=== PATIENT | male | born 1955 | race Caucasian/White ===

== ENCOUNTER 2016-08-05 03:29 | Emergency (ER) | payer SELFPAY ==
[2016-08-05] MEDS ORDERED: Ondansetron HCl/PF 4 MG/2 ML Vial ONE (04:03)
[2016-08-05] MEDS ORDERED: Morphine Sulfate 2 MG/ML SYRINGE ONE (04:03)
--- NOTE | 2016-08-05 06:35 | ERRECORD ---
[facility] EMERGENCY RECORD ADMIN (03:37 [facility]) MERGE: Ambulance Tue Aug 05, 2016 03:25. HPI FALL (03:55 [facility]IM) CHIEF COMPLAINT: Patient presents for evaluation of fall, from standing, landing on back. HISTORIAN: History provided by patient, History provided by patient's spouse, 60 y/o male with EtOH abuse, s/p fall six days ago requiring L shoulder surgery 5 days ago, presenting after fall yesterday. Pt does not described exactly what happened. states that she was giving pt 2 tabs of tramadol every 4-6 hours, so he was altered. Pt indicates that he might have fallen with his back against concrete stairs. Less likely that he fell down the stairs. No headache. Mild neck muscle soreness. Significant L mid back pain. LOCATION: Symptoms are localized, most severe to L mid back. QUALITY: Pain is dull in nature, described as aching. TIME COURSE: Sudden onset of symptoms, 1, days ago, There has been no change in the patient's symptoms over time. ASSOCIATED WITH: Associated with neck pain, No associated chest pain, Associated with abdominal pain, Associated with back pain, No associated elbow pain, No associated wrist pain, No associated hand pain, No associated finger pain, No associated hip pain, No associated knee pain, No associated ankle pain, No associated foot pain, No associated alcohol use, No associated blurred vision, No associated inability to bear weight, No associated headache, No associated loss of consciousness, No associated near syncope. EXACERBATED BY: Patient's condition exacerbated by extension, Patient's condition exacerbated by flexion. RELIEVED BY: Patient's condition relieved by nothing. ROS (03:59 ALIM) CONSTITUTIONAL: Negative constitutional review of systems, Historian denies fever, denies weakness. EYES: Negative eye review of systems, Historian denies eye pain, denies vision changes. ENT: Negative ears, nose, throat review of systems, Historian denies rhinorrhea, denies sore throat. CARDIOVASCULAR: Negative cardiovascular review of systems, Historian denies chest pain, no radiation, Historian denies syncope. RESPIRATORY: Negative respiratory review of systems, Historian denies cough, denies shortness of breath, denies wheezing. GI: Historian reports abdominal pain, denies constipation, denies diarrhea, denies nausea, denies vomiting. GENITOURINARY MALE: Historian denies dysuria. MUSCULOSKELETAL: Historian reports back pain, denies deformity, reports fall, reports injury, reports neck pain. SKIN: Negative skin review of systems, Historian denies rash, &a-1R&a+25V*p+0X*[id number]*c202B*c15G*c2P*p-0X&a-25V&a+1R Name: Levi Young : 1955 M60 MedRec: [id number] AcctNum: [id number] Prepared: jaguar Aug 05, 2016 21:34 by Interface Page 1 of 4 pMD [facility] EMERGENCY RECORD denies skin changes, denies skin lesions. NEUROLOGIC: Historian denies dizziness, denies headache. was taking too much tramadol per . PSYCHIATRIC: Historian reports alcohol abuse, denies drug abuse. NOTES: All systems reviewed, negative except as described above. PAST MEDICAL HISTORY MEDICAL HISTORY: Flu vaccine up to date, Pneumococcal vaccine up to date, Past medical history includes history of hypertension, which has been treated. (03:43 [facility]) MALE SURGICAL HISTORY: BILATERAL CATARACTS; R HAND SX (STAPH INFECTION), Surgical history of orthopedic surgery, LEFT SHOULDER, Date of surgery 07/31/2016. (03:43 [facility]) SOCIAL HISTORY: Patient drinks every day, more than 10 drinks per day, Alcohol history notes: PT HAS NOT DRANK SINCE THURSDAY (07/31/16), Patient is a former drug user, abused marijuana, Patient currently uses tobacco, smokes cigarettes, daily, Patient smokes 1.5 packs per day, Lives at home, with family. (03:43 [facility]) NOTES: Nursing records reviewed, Agree with nursing records, Medication list reviewed, I have reviewed and agree with nursing PMH, PSH, social history, and . (04:04 [facility]) KNOWN ALLERGIES NKDA (Unconfirmed) No Known Allergies (Unconfirmed) No Known Drug Allergies CURRENT MEDICATIONS LORazepam: TABLET : Strength - 1 mg : ORAL Patient Dose: 1 mg Oral As Needed.Last Taken: 08/05/16 @ 02:30. TID. (04:26 [facility]) [place]: TABLET : Strength - 5 mg-325 mg : ORAL Patient Dose: 1-2 tab(s) Oral As Needed.Last Taken: 1 TAB-08/05/16@ 02:30. EVERY 6 HRS. (04:27 [facility]) folic acid: TABLET : Strength - 1 mg : ORAL Patient Dose: 1 mg Oral once a day. (04:27 [facility]) amLODIPine: TABLET : Strength - 5 mg : ORAL Patient Dose: 5 mg Oral once a day. (04:28 [facility]) traMADol: TABLET : Strength - 50 mg : ORAL Patient Dose: 1-2 tab(s) Oral As Needed.EVERY 4-6 HOURS. (04:29 [facility]) Vitamin B-1: &a-1R&a+25V*p+0X*u1129P*c202B*c15G*c2P*p-0X&a-25V&a+1R Name: Levi Young : 1955 M60 MedRec: [id number] AcctNum: [id number] Prepared: Lauryn Aug 05, 2016 21:34 by Interface Page 2 of 4 pMD [facility] EMERGENCY RECORD TABLET : Strength - 100 mg : ORAL Patient Dose: 100 mg Oral once a day. (04:29 [facility]) VITAL SIGNS VITAL SIGNS: BP: 179/84, Pulse: 89, Resp: 20, Pain: 10 (Constant), O2 sat: 100 on Room Air, Time: 08/05/2016 03:31. (03:31 [facility]) Temp: 98.0 (Oral), Time: 08/05/2016 03:31. (03:31 [facility]) BP: 150/74, Resp: 18, O2 sat: 100 on Room Air, Time: 08/05/2016 05:00. (05:00 [facility]) BP: 125/75, Pulse: 86, Resp: 16, O2 sat: 96 on Room Air, Time: 08/05/2016 05:54. (05:54 [facility]) BP: 129/78, Pulse: 87, Resp: 16, Temp: 97.8 (Oral), Pain: 10, O2 sat: 98 on Room Air, Time: 08/05/2016 06:25. (06:25 [facility]) PHYSICAL EXAM (04:00 [facility]) CONSTITUTIONAL: Vital signs reviewed, Patient afebrile, Pulse normal, Blood pressure, hypertensive, Respiratory rate normal, Patient appears non toxic, Patient appears in pain, in moderate pain distress, Patient alert and oriented to person, place and time, slightly drowsy. HEAD: Head exam normal, Head exam included findings of head atraumatic, normocephalic. EYES: Eye exam normal, Eye exam included findings of eyelids normal to inspection, Extraocular muscles intact. ENT: ENT exam normal, Ear exam normal, Nose exam normal. NECK: Neck exam normal, Neck exam included findings of normal range of motion, Trachea midline. RESPIRATORY CHEST: Respiratory and chest exam normal, Respiratory exam included findings of no respiratory distress, no egophony, Breath sounds clear, No wheezing. CARDIOVASCULAR: Cardiovascular assessment normal, Cardiovascular exam included findings of heart rate regular rate and rhythm. ABDOMEN MALE: Abdominal exam normal, Abdominal exam included findings of abdomen nontender, Bowel sounds normal. BACK: Tenderness, paraspinal to the left mid back. UPPER EXTREMITY: L shoulder in sling. No pain. LOWER EXTREMITY: Lower extremity exam normal, Left pelvis exam normal, Right pelvis exam normal, Left hip exam normal, Right hip exam normal. NEURO: Neuro exam normal, Neuro exam findings include patient oriented to person, place and time, [place] coma scale 15. SKIN: Skin exam normal, Skin exam included findings of skin warm, dry, and normal in color. PSYCHIATRIC: Psychiatric exam normal, Psychiatric exam included findings of patient oriented to person place and time, Normal affect. MEDICATION ADMINISTRATION SUMMARY &a-1R&a+25V*p+0X*p0904B*c202B*c15G*c2P*p-0X&a-25V&a+1R Name: Levi Young Blanca : 1955 M60 MedRec: [id number] AcctNum: [id number] Prepared: ThuAug 05, 2016 21:34 by Interface Page 3 of 4 pMD [facility] EMERGENCY RECORD Drug Name: morphine injection, Dose Ordered: 2 mg, Route: IV Push, Status: Given, Time: 04:05 08/05/2016, Drug Name: Zofran intravenous, Dose Ordered: 4 mg, Route: IV Push, Status: Given, Time: 04:05 08/05/2016, Detailed record available in Medication Service section. DOCTOR NOTES RE-EVALUATION: CT head and c/spine negative. Removed c-collar. Awaiting CT chest and a/p. Pain controlled with morphine 2 mg given earlier. (04:59 ALI) CT chest shows L posterior 9th and 10th rib fractures, minimally or nondisplaced. CT a/p wnl. (06:13 [facility]) PROBLEM LIST No recorded problems DIAGNOSIS (06:12 [facility]) FINAL: PRIMARY: Fall from standing, ADDITIONAL: Closed minimally displaced rib fractures, Left 9th and 10th posterior rib fractures. PRESCRIPTION No recorded prescriptions DISPOSITION PATIENT: Disposition Type: Discharge, Disposition: *Discharge Home. (06:10 [facility]) Patient left the department. (06:31 [facility]) Lane: SUPRIYA=MD Manan, Yair [facility]=ANNE-MARIE Ashton, [place] &a-1R&a+25V*p+0X*[id number]*c202B*c15G*c2P*p-0X&a-25V&a+1R Name: Levi Young : 1955 M60 MedRec: [id number] AcctNum: [id number] Prepared: Lauryn Aug 05, 2016 21:34 by Interface Page 4 of 4 pMD MTDD
--- NOTE | 2016-08-05 06:41 | PICIS ---
[facility] EMERGENCY RECORD ADMIN MERGE: Ambulance ThuAug 05, 2016 03:25. (03:37 [facility]) TRIAGE (ThuAug 05, 2016 03:36 [facility]) PATIENT: NAME: Levi Young, AGE: 60, GENDER: male, : Thu1955, TIME OF GREET: ThuAug 05, 2016 03:30, PREFERRED LANGUAGE: Bahraini, ETHNICITY: Not or , ECODE BILLING MAP: [facility], SSN: [id number], Zip Code: [address], KG WEIGHT: 69.4 (est.), PHONE: , , , PERSON ID: [id number], PCP: NONE. (ThuAug 05, 2016 03:36 [facility]) TRIAGE NOTES: FALL LAST NIGHT AROUND 20:30. C/O LOW BACK PAIN. PT STATES HE WAS STANDING AT BACK DOOR AND LEGS GAVE OUT. FELL BACKWARDS AND BACK HIT CONCRETE STEPS. (ThuAug 05, 2016 03:36 [facility]) COMPLAINT: FALL. (ThuAug 05, 2016 03:36 [facility]) ADMISSION: URGENCY: 4 Non Urgent, ADMISSION SOURCE: Home, TRANSPORT: AMBULANCE - [facility], BED: TRIAGE. (ThuAug 05, 2016 03:36 [facility]) ASSESSMENT: Symptoms began 08/04/2016 20:30, Location: LEFT/MID BACK. (03:43 [facility]) PAIN: Patient complains of pain described as, aching, cramping, sharp, shooting, stabbing, unbearable, on a scale 0-10 patient rates pain as 10, Location MID/LOWER BACK TO LEFT SIDE, Pain is constant. (03:43 [facility]) IMMUNIZATIONS: Flu vaccine up to date, Date of immunization: 07/31/2016, Tetanus immunization up to date, Pneumococcal vaccine up to date. (03:43 [facility]) SIRS SCORING: Heart Rate 55-109 (0), Temp range 96.8-101.1 (0), respiratory rate 12-24 (0), Mental Status altered: no (0). (03:43 [facility]) TRIAGE SCREENING: Patient denies suicidal ideation, Patient denies presence of domestic violence. (03:43 [facility]) TREATMENTS IN PROGRESS: Treatments given Prehospital: NORCO 5-325MG & 1MG LORAZEPAM@ 02:30. (03:43 [facility]) PROVIDERS: TRIAGE NURSE: Enedina Ashton RN. (ThuAug 05, 2016 03:36 [facility]) VITAL SIGNS: BP 179/84, Pulse 89, Resp 20, Pain 10, (Constant), O2 Sat 100, on Room Air, Time 08/05/2016 03:31. (03:31 [facility]) PREVIOUS VISIT ALLERGIES: NKDA. (ThuAug 05, 2016 03:36 [facility]) NKDA. (03:43 [facility]) KNOWN ALLERGIES NKDA (Unconfirmed) No Known Allergies (Unconfirmed) No Known Drug Allergies CURRENT MEDICATIONS LORazepam: &a-1R&a+25V*p+0X*h0283O*c202B*c15G*c2P*p-0X&a-25V&a+1R Name: KristenLevi daniels Blanca : 1955 M60 MedRec: [id number] AcctNum: [id number] Prepared: ThuAug 05, 2016 21:40 by Interface Page 1 of 15 pMD [facility] EMERGENCY RECORD TABLET : Strength - 1 mg : ORAL Patient Dose: 1 mg Oral As Needed.Last Taken: 08/05/16 @ 02:30. TID. (04:26 [facility]) [place]: TABLET : Strength - 5 mg-325 mg : ORAL Patient Dose: 1-2 tab(s) Oral As Needed.Last Taken: 1 TAB-08/05/16@ 02:30. EVERY 6 HRS. (04:27 [facility]) folic acid: TABLET : Strength - 1 mg : ORAL Patient Dose: 1 mg Oral once a day. (04:27 [facility]) amLODIPine: TABLET : Strength - 5 mg : ORAL Patient Dose: 5 mg Oral once a day. (04:28 [facility]) traMADol: TABLET : Strength - 50 mg : ORAL Patient Dose: 1-2 tab(s) Oral As Needed.EVERY 4-6 HOURS. (04:29 [facility]) Vitamin B-1: TABLET : Strength - 100 mg : ORAL Patient Dose: 100 mg Oral once a day. (04:29 [facility]) VITAL SIGNS VITAL SIGNS: BP: 179/84, Pulse: 89, Resp: 20, Pain: 10 (Constant), O2 sat: 100 on Room Air, Time: 08/05/2016 03:31. (03:31 [facility]) Temp: 98.0 (Oral), Time: 08/05/2016 03:31. (03:31 [facility]) BP: 150/74, Resp: 18, O2 sat: 100 on Room Air, Time: 08/05/2016 05:00. (05:00 [facility]) BP: 125/75, Pulse: 86, Resp: 16, O2 sat: 96 on Room Air, Time: 08/05/2016 05:54. (05:54 [facility]) BP: 129/78, Pulse: 87, Resp: 16, Temp: 97.8 (Oral), Pain: 10, O2 sat: 98 on Room Air, Time: 08/05/2016 06:25. (06:25 [facility]) NURSING ASSESSMENT: BACK (03:45 [facility]) CONSTITUTIONAL: Complex assessment performed, Patient arrives, via stretcher, via [facility], Unsteady gait, Lift to cart, History obtained from patient, Patient appears, in distress due to pain, Patient cooperative, Patient alert, Oriented to person, place and time, Skin warm, Skin dry, Skin normal in color, Mucous membranes pink, Mucous membranes moist, Patient is well-groomed, Patient complains of LEFT MID/LOW BACK PAIN. PAIN: aching pain, cramping pain, sharp pain, shooting pain, stabbing pain, to the mid back, to the lower back, PAIN TO LEFT SIDE (NOT MIDLINE), Onset of pain 08/04/2016 20:30, constant, on a scale 0-10 patient rates pain as 10, Pain exacerbated by, MOVEMENT. BACK: Back assessment findings include tenderness to, the left middle back, Right radial pulse +3(easily &a-1R&a+25V*p+0X*b2618U*c202B*c15G*c2P*p-0X&a-25V&a+1R Name: Levi Young : 1955 M60 MedRec: [id number] AcctNum: [id number] Prepared: Lauryn Aug 05, 2016 21:40 by Interface Page 2 of 15 pMD [facility] EMERGENCY RECORD palpated, considered normal), Left radial pulse +3(easily palpated, considered normal), Left dorsalis pedis pulse +3(easily palpated, considered normal), Right dorsalis pedis pulse +3(easily palpated, considered normal). NECK: Neck assessment findings include trachea midline, no jugular vein distention noted, no tenderness, no pain with range of motion, head immobilization device, with a cervical collar. SAFETY: Side rails up, Cart/Stretcher in lowest position, Family at bedside, Call light within reach, Hospital ID band on. NURSING PROCEDURE: DISCHARGE NOTE (06:30 [facility]) DISCHARGE: Patient discharged to home, in a wheelchair, family driving, accompanied by //partner, Summary of Care printed/ provided, Patient requested and was provided an electronic copy of Discharge Instructions, Discharge instructions given to patient, Simple or moderate discharge teaching performed, by ANNE-MARIE Laura, discharge instructions and prescriptions reviewed with patient using teachback method. follow up with PCP in 2-3 days and orthopedic surgeon as scheduled. be sure to take big deep breaths at least 4 times a day. use ice every 1-2 hours for 20 minutes at a time the first day and then every 3-4 hours for the next few days. continue to use pain medication prescribed from shoulder sx. take Tylenol or ibuprofen for less severe pain., Above person(s) verbalized understanding of discharge instructions and follow-up care, Patient instructed not to drive home, Notes: PT TAKEN OUT TO VEHICLE BY RN VIA WHEELCHAIR AND ASSISTED TO PASSENGER SEAT OF VEHICLE. FAMILY MEMBER DRIVING. BELONGINGS: Belongings and valuables with patient upon arrival to the Emergency Department include:, Belongings and valuables with patient at time of discharge include:, Belongings remain with patient, Valuables remain with patient. NURSING PROCEDURE: IV (03:50 [facility]) PATIENT IDENITIFIER: Patient actively involved in identification process, Patient's identity verified by patient stating name, Patient's identity verified by patient stating date, Patient's identity verified by hospital ID bracelet. IV SITE 1: IV established, to the right antecubital, using an 18 gauge catheter, in one attempt, IV site prepped with Chloroprep, Saline lock established, Flushed with normal saline (mls): 10mLs, Labs drawn at time of placement, labeled in the presence of the patient and sent to lab, Notes: IV site C/D/I. no pain, redness, or swelling. IV start kit/extension tubing used. SAFETY: Side rails up, Cart/Stretcher in lowest position, Call light within reach, Hospital ID band on. NURSING PROCEDURE: NURSE NOTES NURSES NOTES: Notes: PT APPEARS MORE COMFORTABLE. WAS ABLE TO TOLERATE CHANGING INTO A GOWN AFTER RECEIVING PAIN MEDICATION. REPORTS PAIN HAS EASED UP SLIGHTLY BUT STILL RATES PAIN AT A 10. &a-1R&a+25V*p+0X*b4906A*c202B*c15G*c2P*p-0X&a-25V&a+1R Name: Levi Young : 1955 M60 MedRec: [id number] AcctNum: [id number] Prepared: ThuAug 05, 2016 21:40 by Interface Page 3 of 15 pMD [facility] EMERGENCY RECORD (04:15 [facility]) Notes: URINAL GIVEN TO PT. (05:05 [facility]) Notes: PT RESTING QUIETLY IN BED IN NAD. FAMILY AT BEDSIDE. INFORMED WE ARE WAITING ON LAST CT RESULT. NO QUESTIONS OR CONCERNS AT THIS TIME. (05:40 [facility]) Notes: LAST SET OF CT RESULTS RECEIVED AND GIVEN TO MD. (06:00 [facility]) NURSING PROCEDURE: SPINE PRECAUTIONS SPINE PRECAUTIONS: Cervical collar applied. (03:45 [facility]) REMOVAL: Cervical collar removed, by order from Dr. MAUREEN MD, removed by ANNE-MARIE LAURA. (05:00 [facility]) NURSING PROCEDURE: TRANSPORT TO [facility] (04:41 [facility]) FOLLOW-UP: After procedure, patient returned to emergency department. SAFETY: Side rails up, Cart/Stretcher in lowest position, Family at bedside, Call light within reach, Hospital ID band on. ORDER DETAILS Order Name: CT Brain WO Con, Status: Active, Time: 03:46 08/05/2016, User: SUPRIYA, - Ordered for: MD Hinkle Arthur, - Entered by: MD Hinkle Arthur - ThuAug 05, 2016 03:46, - Quantity: 1, Order Name: CT Cervical Spine WO Con, Status: Active, Time: 03:46 08/05/2016, User: [email or web address], - Ordered for: MD Hinkle Arthur, - Entered by: MD Hinkle Arthur - ThuAug 05, 2016 03:46, - Quantity: 1, Order Name: CT Chest Abd Pelvis W Con(Trauma), Status: Active, Time: 03:47 08/05/2016, User: SUPRIYA, - Ordered for: MD Hinkle Arthur, - Entered by: MD Hinkle Arthur - ThuAug 05, 2016 03:47, - Quantity: 1. MEDICATION ADMINISTRATION SUMMARY Drug Name: morphine injection, Dose Ordered: 2 mg, Route: IV Push, Status: Given, Time: 04:05 08/05/2016, Drug Name: Zofran intravenous, Dose Ordered: 4 mg, Route: IV Push, Status: Given, Time: 04:05 08/05/2016, Detailed record available in Medication Service section. MEDICATION SERVICE morphine injection: Order: morphine injection (morphine sulfate) - Dose: 2 mg : IV Push Schedule: Now Ordered by: Yair Hinkle MD &a-1R&a+25V*p+0X*d3186O*c202B*c15G*c2P*p-0X&a-25V&a+1R Name: Levi Young : 1955 M60 MedRec: [id number] AcctNum: [id number] Prepared: ThuAug 05, 2016 21:40 by Interface Page 4 of 15 D [facility] EMERGENCY RECORD Entered by: Yair Hinkle MD ThuAug 05, 2016 04:02 Documented as given by: Enedina Ashton RN ThuAug 05, 2016 04:05 Patient, Medication, Dose, Route and Time verified prior to administration. Amount given: 2MG, IV SITE #1 IVP, initial medication, Slowly, Awake and alert- acceptable, Catheter placement confirmed via flush prior to administration, IV site without signs or symptoms of infiltration during medication administration, No swelling during administration, No drainage during administration, IV flushed after administration, Correct patient, time, route, dose and medication confirmed prior to administration, Patient advised of actions and side-effects prior to administration, Allergies confirmed and medications reviewed prior to administration. : Follow Up : No signs or symptoms of allergic reaction noted, Decreased pain, _IV SITE #1:_. (04:30 [facility]) Zofran intravenous: Order: Zofran intravenous (ondansetron HCl) - Dose: 4 mg : IV Push Schedule: Now Ordered by: Yair Hinkle MD Entered by: MD Lauryn Owens Aug 05, 2016 04:02 Documented as given by: Enedina Ashton RN jaguar Aug 05, 2016 04:05 Patient, Medication, Dose, Route and Time verified prior to administration. Amount given: 4MG, IV SITE #1 IVP, initial medication, Slowly, Awake and alert- acceptable, Catheter placement confirmed via flush prior to administration, IV site without signs or symptoms of infiltration during medication administration, No swelling during administration, No drainage during administration, IV flushed after administration, Correct patient, time, route, dose and medication confirmed prior to administration, Patient advised of actions and side-effects prior to administration, Allergies confirmed and medications reviewed prior to administration. : Follow Up : No signs or symptoms of allergic reaction noted, _IV SITE #1:_. (04:30 [facility]) HPI FALL (03:55 [facility]) CHIEF COMPLAINT: Patient presents for evaluation of fall, from standing, landing on back. HISTORIAN: History provided by patient, History provided by patient's spouse, 60 y/o male with EtOH abuse, s/p fall six days ago requiring L shoulder surgery 5 days ago, presenting after fall yesterday. Pt does not described exactly what happened. states that she was giving pt 2 tabs of tramadol every 4-6 hours, so he was altered. Pt indicates that he might have fallen with his back against concrete stairs. Less likely that he fell down the stairs. No headache. Mild neck muscle soreness. Significant L mid back pain. LOCATION: Symptoms are localized, most severe to L mid back. QUALITY: Pain is dull in nature, described as aching. TIME COURSE: Sudden onset of symptoms, 1, days &a-1R&a+25V*p+0X*v0497F*c202B*c15G*c2P*p-0X&a-25V&a+1R Name: Levi Young Blanca : 1955 M60 MedRec: [id number] AcctNum: [id number] Prepared: Lauryn Aug 05, 2016 21:40 by Interface Page 5 of 15 pMD [facility] EMERGENCY RECORD ago, There has been no change in the patient's symptoms over time. ASSOCIATED WITH: Associated with neck pain, No associated chest pain, Associated with abdominal pain, Associated with back pain, No associated elbow pain, No associated wrist pain, No associated hand pain, No associated finger pain, No associated hip pain, No associated knee pain, No associated ankle pain, No associated foot pain, No associated alcohol use, No associated blurred vision, No associated inability to bear weight, No associated headache, No associated loss of consciousness, No associated near syncope. EXACERBATED BY: Patient's condition exacerbated by extension, Patient's condition exacerbated by flexion. RELIEVED BY: Patient's condition relieved by nothing. ROS (03:59 [facility]) CONSTITUTIONAL: Negative constitutional review of systems, Historian denies fever, denies weakness. EYES: Negative eye review of systems, Historian denies eye pain, denies vision changes. ENT: Negative ears, nose, throat review of systems, Historian denies rhinorrhea, denies sore throat. CARDIOVASCULAR: Negative cardiovascular review of systems, Historian denies chest pain, no radiation, Historian denies syncope. RESPIRATORY: Negative respiratory review of systems, Historian denies cough, denies shortness of breath, denies wheezing. GI: Historian reports abdominal pain, denies constipation, denies diarrhea, denies nausea, denies vomiting. GENITOURINARY MALE: Historian denies dysuria. MUSCULOSKELETAL: Historian reports back pain, denies deformity, reports fall, reports injury, reports neck pain. SKIN: Negative skin review of systems, Historian denies rash, denies skin changes, denies skin lesions. NEUROLOGIC: Historian denies dizziness, denies headache. was taking too much tramadol per . PSYCHIATRIC: Historian reports alcohol abuse, denies drug abuse. NOTES: All systems reviewed, negative except as described above. PAST MEDICAL HISTORY MEDICAL HISTORY: Flu vaccine up to date, Pneumococcal vaccine up to date, Past medical history includes history of hypertension, which has been treated. (03:43 [facility]) MALE SURGICAL HISTORY: BILATERAL CATARACTS; R HAND SX (STAPH INFECTION), Surgical history of orthopedic surgery, LEFT SHOULDER, Date of surgery 07/31/2016. (03:43 [facility]) SOCIAL HISTORY: Patient drinks every day, more than 10 drinks per day, Alcohol history notes: PT HAS NOT DRANK SINCE THURSDAY (07/31/16), Patient is a former drug user, &a-1R&a+25V*p+0X*q9701Z*c202B*c15G*c2P*p-0X&a-25V&a+1R Name: Levi Young : 1955 M60 MedRec: [id number] AcctNum: [id number] Prepared: Lauryn Aug 05, 2016 21:40 by Interface Page 6 of 15 pMD [facility] EMERGENCY RECORD abused marijuana, Patient currently uses tobacco, smokes cigarettes, daily, Patient smokes 1.5 packs per day, Lives at home, with family. (03:43 [facility]) NOTES: Nursing records reviewed, Agree with nursing records, Medication list reviewed, I have reviewed and agree with nursing PMH, PSH, social history, and FH. (04:04 [facility]) PHYSICAL EXAM (04:00 [facility]) CONSTITUTIONAL: Vital signs reviewed, Patient afebrile, Pulse normal, Blood pressure, hypertensive, Respiratory rate normal, Patient appears non toxic, Patient appears in pain, in moderate pain distress, Patient alert and oriented to person, place and time, slightly drowsy. HEAD: Head exam normal, Head exam included findings of head atraumatic, normocephalic. EYES: Eye exam normal, Eye exam included findings of eyelids normal to inspection, Extraocular muscles intact. ENT: ENT exam normal, Ear exam normal, Nose exam normal. NECK: Neck exam normal, Neck exam included findings of normal range of motion, Trachea midline. RESPIRATORY CHEST: Respiratory and chest exam normal, Respiratory exam included findings of no respiratory distress, no egophony, Breath sounds clear, No wheezing. CARDIOVASCULAR: Cardiovascular assessment normal, Cardiovascular exam included findings of heart rate regular rate and rhythm. ABDOMEN MALE: Abdominal exam normal, Abdominal exam included findings of abdomen nontender, Bowel sounds normal. BACK: Tenderness, paraspinal to the left mid back. UPPER EXTREMITY: L shoulder in sling. No pain. LOWER EXTREMITY: Lower extremity exam normal, Left pelvis exam normal, Right pelvis exam normal, Left hip exam normal, Right hip exam normal. NEURO: Neuro exam normal, Neuro exam findings include patient oriented to person, place and time, [place] coma scale 15. SKIN: Skin exam normal, Skin exam included findings of skin warm, dry, and normal in color. PSYCHIATRIC: Psychiatric exam normal, Psychiatric exam included findings of patient oriented to person place and time, Normal affect. LAB INTERPRETATION (04:04 [facility]) INTERPRETATION: I reviewed the lab results, All labs normal except as noted below, Lab results have been reviewed and are attached to this chart. EVENTS TRANSFER: Triage to Emergency Triage. (03:36 [facility]) Emergency Triage to Emergency Room -05. (03:37 [facility]) Removed from Emergency Emergency Room -05. (06:31 [facility]) &a-1R&a+25V*p+0X*n3243A*c202B*c15G*c2P*p-0X&a-25V&a+1R Name: Levi Young : 1955 M60 MedRec: [id number] AcctNum: [id number] Prepared: Lauryn Aug 05, 2016 21:40 by Interface Page 7 of 15 pMD [facility] EMERGENCY RECORD DOCTOR NOTES RE-EVALUATION: CT head and c/spine negative. Removed c-collar. Awaiting CT chest and a/p. Pain controlled with morphine 2 mg given earlier. (04:59 [facility]) CT chest shows L posterior 9th and 10th rib fractures, minimally or nondisplaced. CT a/p wnl. (06:13 [facility]) ATTENDING (04:04 [facility]) ATTENDING: The documented history was done by me personally, The documented physical exam was done by me personally, The documented procedures were done by me personally, I have personally seen and examined this patient. I have fully participated in the care of this patient. I have reviewed all pertinent clinical information, including history, physical exam and plan. PROBLEM LIST No recorded problems DIAGNOSIS (06:12 [facility]) FINAL: PRIMARY: Fall from standing, ADDITIONAL: Closed minimally displaced rib fractures, Left 9th and 10th posterior rib fractures. DISPOSITION PATIENT: Disposition Type: Discharge, Disposition: *Discharge Home. (06:10 [facility]) Patient left the department. (06:31 [facility]) INSTRUCTION (06:13 [facility]) DISCHARGE: FALL PREVENTION, RIB FRACTURE. SPECIAL: Follow-up with your primary care physician in 2-3 days for reevaluation. Follow-up with your Orthopedic Surgeon as scheduled. Please review the instructions and educational material provided for you. Return to the Emergency Center if you have worsening symptoms not controlled by medication, or if you have chest pain, shortness of breath, nausea and vomiting that cannot be controlled, or any other medical concerns. Follow-up with your PCP. PRESCRIPTION No recorded prescriptions IMAGING RADIOLOGY REPORTS: Image captured from scanner. (06:14 [facility]) Page 2 added. Image captured from scanner. (06:15 [facility]) Page 3 added. Image captured from scanner. (06:15 [facility]) Page 4 added. Image captured from scanner. (06:15 [facility]) Page 5 added. Image captured from scanner. (06:15 [facility]) *SUPPLY CHARGE SHEET: Image captured from scanner. (06:17 [facility]) *DISCHARGE INSTRUCTIONS RECEIPT: Image captured from scanner. &a-1R&a+25V*p+0X*s9605I*c202B*c15G*c2P*p-0X&a-25V&a+1R Name: Levi Young : 1955 M60 MedRec: [id number] AcctNum: [id number] Prepared: ThuAug 05, 2016 21:40 by Interface Page 8 of 15 D [facility] EMERGENCY RECORD (06:35 [facility]) ADMIN DIGITAL SIGNATURE: MD Hinkle Arthur. (21:27 [facility]) RESULTS (21:27 [facility]) RADIOLOGY: CT Brain WO Con Observe DT: ThuAug 05, 2016 03:48, BR PRELIMINARY REPORT/[facility]/EMERGENCY AFTER HOURS PROCEDURE: \H\EXAM: \N\CT Head Without Intravenous Contrast. \H\ CLINICAL HISTORY: \N\60 years old, male; Injury or trauma; Fall; Initial encounter; Blunt trauma (contusions or hemato mas); Consciousness not specified; Injury date: 08/04/16; Injury details: Fall yesterday (over 24 hr s ago). C/O low back pain. Pt states he was standing at back door and legs gave out. Fell backwards and back hit concrete steps. ; Patient HX: Fall yesterday (over 24 hrs ago). C/O low back pain. Pt s tates he was standing at back door and legs gave out. Fell backwards and back hit concrete steps. ; \H\ TECHNIQUE: \N\Axial computed tomography images of the head/brain without intravenous contrast. \H\ COMPARISON: \N\No relevant prior studies available. \H\ FINDINGS: \N\Brain: Volume loss and chronic small vessel ischemic change. No hemorrhage. Ventricles: Unremarkable. No ventriculomegaly. Bones: No acute fracture. Soft tissues: Unremarkable. Sinuses: Unremarkable as visualized. No acute sinusitis. Mastoid air cells: Unremarkable as visualized. No mastoid effusion. \H\ IMPRESSION: \N\No intracranial hemorrhage. Thank you for allowing us to participate in the care of your patient. Dictated and Authenticated by: Escobar Fritz MD 08/05/2016 4:46 AM Central Time ([place] \T\ [place]) &a-1R&a+25V*p+0X*k0311D*c202B*c15G*c2P*p-0X&a-25V&a+1R Name: Levi Young Blanca : 1955 M60 MedRec: [id number] AcctNum: [id number] Prepared: ThuAug 05, 2016 21:40 by Interface Page 9 of 15 pMD [facility] EMERGENCY RECORD FINAL INTERPRETATION HEAD CT WITHOUT CONTRAST 08/05/2016 COMPARISON: 07/30/2016 HISTORY: Fall, pain. FINDINGS: I agree with the preliminary [facility] report dictated by Dr. Escobar Fritz. There is a fracture of the zygomatic arch on the left with comminution and angulation, stable when compared to 07/30/2016. The imaged paranasal sinuses/mastoid air cells are well-aerated. No displaced calvarial fracture. Mild stable diffuse cerebral volume loss. No intracranial hemorrhage, midline shift, mass effect, o r ventricular enlargement. No interval change. IMPRESSION: 1. No intracranial hemorrhage. 2. Angulated and comminuted stable left zygomatic arch fracture. POS: [facility] . CT Cervical Spine WO Con Observe DT: ThuAug 05, 2016 03:48, CSP PRELIMINARY REPORT/[facility]/EMERGENCY AFTER HOURS PROCEDURE: \H\EXAM: \N\CT Cervical Spine Without Intravenous Contrast. \H\CLINICAL HISTORY: \N\60 years old, male; Injury or trauma; Fall; Initial encounter; Blunt trauma; Injury date: 7; Injury details: Fall yesterday (over 24 hrs ago). C/O low back pain. Pt states he was standing at back door and legs gave out. Fell backwards and back hit concrete steps. ; Patient HX: Fall yesterd ay (over 24 hrs ago). C/O low back pain. Pt states he was standing at back door and legs gave out. F ell backwards and back hit concrete steps. ; \H\ TECHNIQUE: \N\Axial computed tomography images of the cervical spine without intravenous contrast. &a-1R&a+25V*p+0X*o3390V*c202B*c15G*c2P*p-0X&a-25V&a+1R Name: Levi Young : 1955 M60 MedRec: [id number] AcctNum: [id number] Prepared: Lauryn Aug 05, 2016 21:40 by Interface Page 10 of 15 [facility] EMERGENCY RECORD Coronal and sagittal reformatted images were created and reviewed. \H\ COMPARISON: \N\No relevant prior studies available. \H\ FINDINGS: \N\Vertebrae: Unremarkable. No acute fracture. Discs/spinal canal/neural foramina: No acute findings. No spinal canal stenosis. Soft tissues: Unremarkable. Lung apices: Unremarkable as visualized. \H\ IMPRESSION: \N\Normal cervical spine CT. Thank you for allowing us to participate in the care of your patient. Dictated and Authenticated by: Escobar Fritz MD 08/05/2016 4:49 AM Central Time ([place] \T\ [place]) FINAL REPORT CERVICAL SPINE CT WITHOUT CONTRAST: Date: 08-05-16 History: Fall, trauma, pain. FINDINGS: I agree with the preliminary [facility] report dictated by Dr. Escobar Fritz. There is an old appearing zygomatic arch fracture on the left. Imaged paranasal sinuses and mastoid air cells appear well aerated. The craniocervical junction, the atlantoaxial interspace, and the cervicothoracic junction appear in tact. Cervical vertebral body height and alignment appears normal. Occipital condyles, dens, and C1-2 articulation appear within normal limits. Imaged lung apices dem onstrate an incompletely visualized area of hazy increased density in the medial left lung apex, bet ter assessed on chest CT also performed 08-05-16. No displaced fracture or evidence of dislocation. Suboptimally assessed carotid atherosclerosis not ed. &a-1R&a+25V*p+0X*l2383R*c202B*c15G*c2P*p-0X&a-25V&a+1R Name: Levi Young : 1955 M60 MedRec: [id number] AcctNum: [id number] Prepared: ThuAug 05, 2016 21:40 by Interface Page 11 of 15 pMD [facility] EMERGENCY RECORD IMPRESSION: No acute osseous abnormality. Code QA. POS: [facility] . CT Chest Abd Pelvis W Con Observe DT: ThuAug 05, 2016 03:49, THXABDPEL PRELIMINARY REPORT/[facility]/EMERGENCY AFTER HOURS PROCEDURE: \H\EXAM: \N\CT Chest With Intravenous Contrast. \H\ CLINICAL HISTORY: \N\60 years old, male; Injury or trauma; Fall; Initial encounter; Blunt; Lower; Blunt trauma (contus ions or hematomas); Injury date: 08/04/16; Injury details: Fall yesterday (over 24 hrs ago). C/O low back pain. Pt states he was standing at back door and legs gave out. Fell backwards and back hit co ncrete steps. ; Prior surgery; Surgery date: 3-7 days post-operative; Surgery type: Left shoulder SX ; Patient HX: 60 y/o male with ETOH abuse, S/P fall six days ago requiring l shoulder surgery 5 days ago, presenting after fall yesterday. states that she was giving pt 2 tabs of tramadol every 4 -6 hours, so he was altered. Pt indicates that he might have fallen with his back against concrete s tairs. Less likely that he fell down the stairs. No headache. Mild neck muscle soreness. Significant l mid back pain. ; Additional info: Mid/lower back to left side, pain is stabbing/shooting \T\ cons tant. Egfr >90 \H\ TECHNIQUE: \N\Axial computed tomography images of the chest with intravenous contrast. Coronal and sagittal reformatted images were created and reviewed. \H\ CONTRAST: \N\96 mL of ISOVUE 370 administered intravenously. \H\ COMPARISON: \N\No relevant prior studies available. \H\FINDINGS: \N\Lungs: There is a small opacity of the left lower lobe adjacent to the left posterior rib fractur &a-1R&a+25V*p+0X*s0296T*c202B*c15G*c2P*p-0X&a-25V&a+1R Name: Levi Young : 1955 M60 MedRec: [id number] AcctNum: [id number] Prepared: ThuAug 05, 2016 21:40 by Interface Page 12 of 15 pMD [facility] EMERGENCY RECORD es without subpleural sparing possibly from atelectasis. Pleural space: Unremarkable. No pneumothorax. No significant effusion. Heart: Unremarkable. No cardiomegaly. No significant pericardial effusion. Bones: There is decreased vertebral body height of T5 and T6 of indeterminate age. There are deformi ties of the left lateral T5 rib, right posterior sixth rib, right posterior 11th rib. There are frac tures of the left posterior T9, T10 ribs. Soft tissues: Unremarkable. Vasculature: Unremarkable. No thoracic aortic aneurysm. Lymph nodes: Unremarkable. No enlarged lymph nodes. \H\ IMPRESSION: \N\Fractures of the left posterior ninth and 10th ribs. Opacity within the left lower lobe adjacent to the rib fractures could be from atelectasis. Decreased vertebral body height of T5 and T6 of indeterminate age. \H\EXAM: \N\CT Abdomen and Pelvis With Intravenous Contrast. \H\ CLINICAL HISTORY: \N\60 years old, male; Injury or trauma; Fall; Initial encounter; Blunt; Lower; Blunt trauma (contus ions or hematomas); Injury date: 08/04/16; Injury details: Fall yesterday (over 24 hrs ago). C/O low back pain. Pt states he was standing at back door and legs gave out. Fell backwards and back hit co ncrete steps. ; Prior surgery; Surgery date: 3-7 days post-operative; Surgery type: Left shoulder SX ; Patient HX: 60 y/o male with ETOH abuse, S/P fall six days ago requiring l shoulder surgery 5 days ago, presenting after fall yesterday. states that she was giving pt 2 tabs of tramadol every 4-6 francheska rs, so he was altered. Pt indicates that he might have fallen with his back against concrete stairs. Less likely that he fell down the stairs. No headache. Mild neck muscle soreness. Significant l mid back pain. ; Additional info: Mid/lower back to left side, pain is stabbing/shooting \T\ constant. Egfr >90 \H\ TECHNIQUE: \N\Axial computed tomography images of the abdomen and pelvis with intravenous contrast. Coronal and sagittal reformatted images were created and reviewed. &a-1R&a+25V*p+0X*c0906M*c202B*c15G*c2P*p-0X&a-25V&a+1R Name: Levi Young : 1955 M60 MedRec: [id number] AcctNum: [id number] Prepared: ThuAug 05, 2016 21:40 by Interface Page 13 of 15 pMD [facility] EMERGENCY RECORD \H\ CONTRAST: \N\96 mL of ISOVUE 370 administered intravenously. \H\ COMPARISON: \N\No relevant prior studies available. \H\ FINDINGS: \N\Lower thorax: No acute findings. ABDOMEN: Liver: Unremarkable. No mass. Gallbladder and bile ducts: Unremarkable. No calcified stones. No ductal dilation. Pancreas: Unremarkable. No mass. No ductal dilation. Spleen: Unremarkable. No splenomegaly. Adrenals: Unremarkable. No mass. Kidneys and ureters: Unremarkable. No solid mass. No hydronephrosis. Stomach and bowel: There is left groin hernia containing nondistended segment of colon. No mucosal t hickening. Appendix: No findings to suggest acute appendicitis. \H\ \N\PELVIS: Bladder: Unremarkable. No mass. Reproductive: Unremarkable as visualized. ABDOMEN and PELVIS: Intraperitoneal space: Unremarkable. No free air. No significant fluid collection. Bones: No acute fracture. Soft tissues: See above. Vasculature: Unremarkable. No abdominal aortic aneurysm. Lymph nodes: Unremarkable. No enlarged lymph nodes. \H\ IMPRESSION: \N\No evidence for solid organ injury. Thank you for allowing us to participate in the care of your patient. Dictated and Authenticated by: Arianna Sesay DO 08/05/2016 5:55 AM Central Time ([place] \T\ [place]) FINAL REPORT: CT CHEST, ABDOMEN, AND PELVIS WITH CONTRAST: History: Noted on preliminary report. FINDINGS: &a-1R&a+25V*p+0X*f3284Q*c202B*c15G*c2P*p-0X&a-25V&a+1R Name: Levi Young : 1955 M60 MedRec: [id number] AcctNum: [id number] Prepared: ThuAug 05, 2016 21:40 by Interface Page 14 of 15 pMD [facility] EMERGENCY RECORD There are multiple acute left sided rib fractures. The preliminary report described fractures of th e posterior left 9th and 10th ribs. There are other acute fractures identified involving lateral ri bs 4, 5, 6, 7, and 8 as well. No evidence of pneumothorax. There is nodular opacity in the left apex medially which may represent scarring but should be followed to confirm stability. This was not recommended on the preliminary report. Images of the abdomen and pelvis show no evidence of solid organ injury. No intraperitoneal blood o r fluid. There is a large left inguinal hernia with colon in herniated inguinal canal. There is no evidence of entrapment or bowel obstruction. IMPRESSION: 1. Numerous left sided rib fractures, several of which were not mentioned on the preliminary report . 2. Nodular density in the left apex medially which should be followed with an elective chest CT in 3-4 months. 3. No acute intraabdominal injury. 4. Large left inguinal hernia with colon herniated in the inguinal canal. I am in agreement with the preliminary report, however, the preliminary report did not mention nodul ar density in the left apex, which is a minor disagreement. Code T Code QA CT THORACIC AND LUMBAR SPINE: There is wedge deformities involving the T5 and T6 vertebrae, age indeterminate. This was noted on the preliminary report. Vertebral bodies otherwise show normal height and alignment. POS: [facility] . Lane: SUPRIYA=MD Maureen, Yair [place]=ANNE-MARIE Martinez, Neela [facility]=ANNE-MARIE Ashton, Enedina &a-1R&a+25V*p+0X*p4981T*c202B*c15G*c2P*p-0X&a-25V&a+1R Name: Levi Young Blanca : 1955 M60 MedRec: [id number] AcctNum: [id number] Prepared: Lauryn Aug 05, 2016 21:40 by Interface Page 15 of 15 pMD [facility]
--- NOTE | 2016-08-05 07:55 | CT ---
PRELIMINARY REPORT/[facility]/EMERGENCY AFTER HOURS PROCEDURE: \H\EXAM: \N\CT Head Without Intravenous Contrast. \H\ CLINICAL HISTORY: \N\60 years old, male; Injury or trauma; Fall; Initial encounter; Blunt trauma (contusions or hemato mas); Consciousness not specified; Injury date: 08/04/16; Injury details: Fall yesterday (over 24 hr s ago). C/O low back pain. Pt states he was standing at back door and legs gave out. Fell backwards and back hit concrete steps. ; Patient HX: Fall yesterday (over 24 hrs ago). C/O low back pain. Pt s tates he was standing at back door and legs gave out. Fell backwards and back hit concrete steps. ; \H\ TECHNIQUE: \N\Axial computed tomography images of the head/brain without intravenous contrast. \H\ COMPARISON: \N\No relevant prior studies available. \H\ FINDINGS: \N\Brain: Volume loss and chronic small vessel ischemic change. No hemorrhage. Ventricles: Unremarkable. No ventriculomegaly. Bones: No acute fracture. Soft tissues: Unremarkable. Sinuses: Unremarkable as visualized. No acute sinusitis. Mastoid air cells: Unremarkable as visualized. No mastoid effusion. \H\ IMPRESSION: \N\No intracranial hemorrhage. Thank you for allowing us to participate in the care of your patient. Dictated and Authenticated by: Escobar Fritz MD 08/05/2016 4:46 AM Central Time ([place] \T\ [place]) FINAL INTERPRETATION HEAD CT WITHOUT CONTRAST 08/05/2016 COMPARISON: 07/30/2016 HISTORY: Fall, pain. FINDINGS: I agree with the preliminary [facility] report dictated by Dr. Escobar Fritz. There is a fracture of the zygomatic arch on the left with comminution and angulation, stable when compared to 07/30/2016. The imaged paranasal sinuses/mastoid air cells are well-aerated. No displaced calvarial fracture. Mild stable diffuse cerebral volume loss. No intracranial hemorrhage, midline shift, mass effect, o r ventricular enlargement. No interval change. IMPRESSION: 1. No intracranial hemorrhage. 2. Angulated and comminuted stable left zygomatic arch fracture. POS: [facility]
--- NOTE | 2016-08-05 07:58 | CT ---
PRELIMINARY REPORT/[facility]/EMERGENCY AFTER HOURS PROCEDURE: \H\EXAM: \N\CT Cervical Spine Without Intravenous Contrast. \H\CLINICAL HISTORY: \N\60 years old, male; Injury or trauma; Fall; Initial encounter; Blunt trauma; Injury date: 7; Injury details: Fall yesterday (over 24 hrs ago). C/O low back pain. Pt states he was standing at back door and legs gave out. Fell backwards and back hit concrete steps. ; Patient HX: Fall yesterd ay (over 24 hrs ago). C/O low back pain. Pt states he was standing at back door and legs gave out. F ell backwards and back hit concrete steps. ; \H\ TECHNIQUE: \N\Axial computed tomography images of the cervical spine without intravenous contrast. Coronal and sagittal reformatted images were created and reviewed. \H\ COMPARISON: \N\No relevant prior studies available. \H\ FINDINGS: \N\Vertebrae: Unremarkable. No acute fracture. Discs/spinal canal/neural foramina: No acute findings. No spinal canal stenosis. Soft tissues: Unremarkable. Lung apices: Unremarkable as visualized. \H\ IMPRESSION: \N\Normal cervical spine CT. Thank you for allowing us to participate in the care of your patient. Dictated and Authenticated by: Escobar Fritz MD 08/05/2016 4:49 AM Central Time ([place] \T\ [place]) FINAL REPORT CERVICAL SPINE CT WITHOUT CONTRAST: Date: 08-05-16 History: Fall, trauma, pain. FINDINGS: I agree with the preliminary [facility] report dictated by Dr. Escobar Fritz. There is an old appearing zygomatic arch fracture on the left. Imaged paranasal sinuses and mastoid air cells appear well aerated. The craniocervical junction, the atlantoaxial interspace, and the cervicothoracic junction appear in tact. Cervical vertebral body height and alignment appears normal. Occipital condyles, dens, and C1-2 articulation appear within normal limits. Imaged lung apices dem onstrate an incompletely visualized area of hazy increased density in the medial left lung apex, bet ter assessed on chest CT also performed 08-05-16. No displaced fracture or evidence of dislocation. Suboptimally assessed carotid atherosclerosis not ed. IMPRESSION: No acute osseous abnormality. Code QA. POS: [facility]
[2016-08-05] MEDS ORDERED: Iopamidol 370 76% 100 ML VIAL ONE (09:00)
--- NOTE | 2016-08-05 09:54 | CT ---
PRELIMINARY REPORT/[facility]/EMERGENCY AFTER HOURS PROCEDURE: \H\EXAM: \N\CT Chest With Intravenous Contrast. \H\ CLINICAL HISTORY: \N\60 years old, male; Injury or trauma; Fall; Initial encounter; Blunt; Lower; Blunt trauma (contus ions or hematomas); Injury date: 08/04/16; Injury details: Fall yesterday (over 24 hrs ago). C/O low back pain. Pt states he was standing at back door and legs gave out. Fell backwards and back hit co ncrete steps. ; Prior surgery; Surgery date: 3-7 days post-operative; Surgery type: Left shoulder SX ; Patient HX: 60 y/o male with ETOH abuse, S/P fall six days ago requiring l shoulder surgery 5 days ago, presenting after fall yesterday. states that she was giving pt 2 tabs of tramadol every 4 -6 hours, so he was altered. Pt indicates that he might have fallen with his back against concrete s tairs. Less likely that he fell down the stairs. No headache. Mild neck muscle soreness. Significant l mid back pain. ; Additional info: Mid/lower back to left side, pain is stabbing/shooting \T\ cons tant. Egfr >90 \H\ TECHNIQUE: \N\Axial computed tomography images of the chest with intravenous contrast. Coronal and sagittal reformatted images were created and reviewed. \H\ CONTRAST: \N\96 mL of ISOVUE 370 administered intravenously. \H\ COMPARISON: \N\No relevant prior studies available. \H\FINDINGS: \N\Lungs: There is a small opacity of the left lower lobe adjacent to the left posterior rib fractur es without subpleural sparing possibly from atelectasis. Pleural space: Unremarkable. No pneumothorax. No significant effusion. Heart: Unremarkable. No cardiomegaly. No significant pericardial effusion. Bones: There is decreased vertebral body height of T5 and T6 of indeterminate age. There are deformi ties of the left lateral T5 rib, right posterior sixth rib, right posterior 11th rib. There are frac tures of the left posterior T9, T10 ribs. Soft tissues: Unremarkable. Vasculature: Unremarkable. No thoracic aortic aneurysm. Lymph nodes: Unremarkable. No enlarged lymph nodes. \H\ IMPRESSION: \N\Fractures of the left posterior ninth and 10th ribs. Opacity within the left lower lobe adjacent to the rib fractures could be from atelectasis. Decreased vertebral body height of T5 and T6 of indeterminate age. \H\EXAM: \N\CT Abdomen and Pelvis With Intravenous Contrast. \H\ CLINICAL HISTORY: \N\60 years old, male; Injury or trauma; Fall; Initial encounter; Blunt; Lower; Blunt trauma (contus ions or hematomas); Injury date: 08/04/16; Injury details: Fall yesterday (over 24 hrs ago). C/O low back pain. Pt states he was standing at back door and legs gave out. Fell backwards and back hit co ncrete steps. ; Prior surgery; Surgery date: 3-7 days post-operative; Surgery type: Left shoulder SX ; Patient HX: 60 y/o male with ETOH abuse, S/P fall six days ago requiring l shoulder surgery 5 days ago, presenting after fall yesterday. states that she was giving pt 2 tabs of tramadol every 4-6 francheska rs, so he was altered. Pt indicates that he might have fallen with his back against concrete stairs. Less likely that he fell down the stairs. No headache. Mild neck muscle soreness. Significant l mid back pain. ; Additional info: Mid/lower back to left side, pain is stabbing/shooting \T\ constant. Egfr >90 \H\ TECHNIQUE: \N\Axial computed tomography images of the abdomen and pelvis with intravenous contrast. Coronal and sagittal reformatted images were created and reviewed. \H\ CONTRAST: \N\96 mL of ISOVUE 370 administered intravenously. \H\ COMPARISON: \N\No relevant prior studies available. \H\ FINDINGS: \N\Lower thorax: No acute findings. ABDOMEN: Liver: Unremarkable. No mass. Gallbladder and bile ducts: Unremarkable. No calcified stones. No ductal dilation. Pancreas: Unremarkable. No mass. No ductal dilation. Spleen: Unremarkable. No splenomegaly. Adrenals: Unremarkable. No mass. Kidneys and ureters: Unremarkable. No solid mass. No hydronephrosis. Stomach and bowel: There is left groin hernia containing nondistended segment of colon. No mucosal t hickening. Appendix: No findings to suggest acute appendicitis. \H\ \N\PELVIS: Bladder: Unremarkable. No mass. Reproductive: Unremarkable as visualized. ABDOMEN and PELVIS: Intraperitoneal space: Unremarkable. No free air. No significant fluid collection. Bones: No acute fracture. Soft tissues: See above. Vasculature: Unremarkable. No abdominal aortic aneurysm. Lymph nodes: Unremarkable. No enlarged lymph nodes. \H\ IMPRESSION: \N\No evidence for solid organ injury. Thank you for allowing us to participate in the care of your patient. Dictated and Authenticated by: Arianna Sesay DO 08/05/2016 5:55 AM Central Time ([place] \T\ [place]) FINAL REPORT: CT CHEST, ABDOMEN, AND PELVIS WITH CONTRAST: History: Noted on preliminary report. FINDINGS: There are multiple acute left sided rib fractures. The preliminary report described fractures of th e posterior left 9th and 10th ribs. There are other acute fractures identified involving lateral ri bs 4, 5, 6, 7, and 8 as well. No evidence of pneumothorax. There is nodular opacity in the left apex medially which may represent scarring but should be followed to confirm stability. This was not recommended on the preliminary report. Images of the abdomen and pelvis show no evidence of solid organ injury. No intraperitoneal blood o r fluid. There is a large left inguinal hernia with colon in herniated inguinal canal. There is no evidence of entrapment or bowel obstruction. IMPRESSION: 1. Numerous left sided rib fractures, several of which were not mentioned on the preliminary report . 2. Nodular density in the left apex medially which should be followed with an elective chest CT in 3-4 months. 3. No acute intraabdominal injury. 4. Large left inguinal hernia with colon herniated in the inguinal canal. I am in agreement with the preliminary report, however, the preliminary report did not mention nodul ar density in the left apex, which is a minor disagreement. Code T Code QA CT THORACIC AND LUMBAR SPINE: There is wedge deformities involving the T5 and T6 vertebrae, age indeterminate. This was noted on the preliminary report. Vertebral bodies otherwise show normal height and alignment. POS: [facility]
== END 2016-08-05 06:30 | disposition home or self-care (01) ==
LOC: NAV ERS 03:29
DX: S22.42XA Multiple fractures of ribs, left side, initial encounter for closed fracture (principal); I10 Essential (primary) hypertension; F17.210 Nicotine dependence, cigarettes, uncomplicated; W19.XXXA Unspecified fall, initial encounter
CPT/HCPCS: 70450; 71260; 72125; 74177; 96374; 96375; J2270; J2405

== ENCOUNTER 2016-09-15 19:33 | Emergency (ER) | payer SELFPAY ==
[2016-09-15] MEDS ORDERED: cloNIDine HCl 0.1 MG TAB ONE (19:54)
[2016-09-15] MEDS ORDERED: Lorazepam 2 MG/ML VIAL ONE (19:54)
--- NOTE | 2016-09-15 20:33 | RAD ---
ONE VIEW CHEST: History: Dyspnea. Comparison: None. FINDINGS: Post-surgical changes in the left humerus are noted. Atherosclerosis in the aorta. Pulmonary vessels and hilum are normal. Costophrenic angles are bryanna r. No mass. No consolidation. No pneumothorax. Old left rib fractures. IMPRESSION: No acute cardiopulmonary process. POS: [facility]
[2016-09-15 20:36] LABS: #Basophils 0.1 thou/uL (0.0-0.2); #Eosinphils 0.1 thou/uL (0.0-0.7); #Lymphocytes 1.9 thou/uL (1.20-3.40); #Monocytes 0.7 thou/uL (0.11-0.59); #Neutrophils 7.5 thou/uL (1.40-6.50); %Eosinophils 1.4 % (0.0-10.0); %Lymphocytes 18.1 % (21.0-51.0); %Monocytes 6.7 % (0.0-10.0); Hematocrit 42.8 % (42.0-52.0); Mean Platelet Volume 5.9 fL (7.4-10.4); Red Blood Cell (RBC) Count 4.52 mill/uL (4.70-6.10); White Blood Cell (WBC) Count 10.3 thou/uL (4.8-10.8)
[2016-09-15 20:52] LABS: ALT (SGPT) 13 U/L (0-55); AST (SGOT) 15 U/L (5-34); Alkaline Phosphatase 91 U/L (40-150); Anion Gap 22 mmol/L (10-20); BUN (Urea Nitrogen) 8 mg/dL (8.4-25.7); Bilirubin, Total 0.5 mg/dL (0.2-1.2); CK (CPK) 89 U/L (30-200); Calc. Creatinine Clearance 0 mL/min (70-130); Calcium 9.5 mg/dL (7.8-10.44); Carbon Dioxide 18 mmol/L (23-31); Chloride 95 mmol/L (98-107); Estimated GFR-MDRD Greater than 90; Globulin 3.1 g/dL (2.4-3.5); Lipase 43 U/L (8-78); Protein, Total 7.5 g/dL (5.8-8.1)
[2016-09-15 20:59] LABS: Troponin I Less than 0.010 ng/mL (< 0.028)
== END 2016-09-15 21:25 | disposition home or self-care (01) ==
LOC: NAV ERS 19:33
DX: F41.9 Anxiety disorder, unspecified (principal); I10 Essential (primary) hypertension; F17.210 Nicotine dependence, cigarettes, uncomplicated; Z79.891 Long term (current) use of opiate analgesic; Z79.899 Other long term (current) drug therapy
CPT/HCPCS: 71010; 80053; 82553; 83690; 84484; 85025; 93005; 96374; J2060

== ENCOUNTER 2018-09-05 15:44 | Emergency (ER) | payer MEDICARE ==
--- NOTE | 2018-09-05 18:14 | RAD ---
RIGHT SHOULDER THREE VIEWS: History: Fall. Comparison: Chest radiograph 09-15-16. FINDINGS: There is an acute distal clavicular fracture in the longitudinal direction with mild comminution. The distal fragment still communicates with the acromioclavicular joint. There is widening of the coraco clavicular alignment. Glenohumeral joint alignment is normal. IMPRESSION: Longitudinally oriented distal clavicular fracture with fragments and tear of the coracoclavicular li gament. POS: [facility]
== END 2018-09-05 16:55 | disposition home or self-care (01) ==
LOC: NAV ERS 15:44
DX: S42.031A Displaced fracture of lateral end of right clavicle, initial encounter for closed fracture (principal); I10 Essential (primary) hypertension; F17.210 Nicotine dependence, cigarettes, uncomplicated; Z79.899 Other long term (current) drug therapy; W19.XXXA Unspecified fall, initial encounter

== ENCOUNTER 2018-09-12 11:58 | Emergency (ER) | payer MEDICARE ==
[2018-09-12] MEDS ORDERED: Morphine 4 MG/ML VIAL ONE (12:28)
[2018-09-12] MEDS ORDERED: Dextrose 5 %-0.45 % NaCl 1,000 ML ONE (12:35)
[2018-09-12] MEDS ORDERED: Multivit, Adult Inj 10 ML VIAL ONE (12:37)
[2018-09-12] MEDS ORDERED: Thiamine HCl 200 MG/2 ML VIAL ONE (12:37)
[2018-09-12 12:44] LABS: #Lymphocytes 1.2 thou/uL (1.20-3.40); #Monocytes 0.6 thou/uL (0.11-0.59); #Neutrophils 4.7 thou/uL (1.40-6.50); %Basophils 0.6 % (0.0-1.0); %Eosinophils 0.6 % (0.0-10.0); %Lymphocytes 17.6 % (21.0-51.0); %Monocytes 9.5 % (0.0-10.0); %Neutrophils 71.7 % (42.0-75.0); Hemoglobin 14.5 g/dL (14.0-18.0); Mean Corpuscular HGB CONC 34.8 g/dL (32.0-36.0); Mean Corpuscular Hemoglobin 33.5 pg (27.0-31.0); Mean Corpuscular Volume 96.2 fL (78.0-98.0); Mean Platelet Volume 5.9 fL (7.4-10.4); Platelet Count 306 thou/uL (130-400); RBC Distribution Width 11.2 % (11.5-14.5); Red Blood Cell (RBC) Count 4.31 mill/uL (4.70-6.10); White Blood Cell (WBC) Count 6.6 thou/uL (4.8-10.8)
[2018-09-12 12:56] LABS: ALT (SGPT) 27 U/L (8-55); AST (SGOT) 39 U/L (5-34); Alkaline Phosphatase 101 U/L (40-150); Anion Gap 16 mmol/L (10-20); BUN (Urea Nitrogen) 6 mg/dL (8.4-25.7); Bilirubin, Total 0.9 mg/dL (0.2-1.2); CK (CPK) 72 U/L (30-200); Calc. Creatinine Clearance 0 mL/min (70-130); Calcium 9.9 mg/dL (7.8-10.44); Carbon Dioxide 25 mmol/L (23-31); Chloride 99 mmol/L (98-107); Estimated GFR-MDRD Greater than 90; Globulin 2.6 g/dL (2.4-3.5); Glucose 100 mg/dL (80-115); Potassium 5.1 mmol/L (3.5-5.1); Protein, Total 6.6 g/dL (5.8-8.1); Sodium 135 mmol/L (136-145)
--- NOTE | 2018-09-12 13:39 | RAD ---
FRONTAL VIEW PELVIS: Date: 09/12/18 INDICATION: Injury with pain related to fall. FINDINGS: Internal rotation of the right femur limits evaluation of the right femoral neck. Left hip is maintai nora. Sacrum is partially obscured by overlying bowel content. There is scattered osseous degenerative change. Vascular calcifications seen. IMPRESSION: Limited evaluation of the right femoral neck due to rotation of the right hip. Dedicated right hip vi ews, including frog-leg, would be beneficial to exclude fracture if there is concern within this kaylee on. POS: [facility]
[2018-09-12] MEDS ORDERED: Lorazepam 2 MG/ML VIAL ONE (13:42)
[2018-09-12] MEDS ORDERED: Ketorolac Tromethamine 30 MG/ML VIAL ONE (13:42)
--- NOTE | 2018-09-12 15:07 | RAD ---
2 VIEWS RIGHT HIP: Date: 09/12/18 HISTORY: Pain in right hip post fall. FINDINGS: There is irregularity in the region of the femoral head and neck junction superolaterally. This could be related to a mildly impacted subcapital right femoral neck fracture. There is no evidence of a di slocation, and no additional fracture is seen. Vascular calcification in the femoral arteries. IMPRESSION: Irregularity superolateral aspect of the right femoral neck which may represent an impacted subcapita l right femoral neck fracture. MRI of right hip is suggested for confirmation and furthere evaluation of suggested right hip fracture. POS: [facility]
--- NOTE | 2018-09-12 15:14 | CT ---
HEAD CT NONCONTRAST: Date: 09/12/18 COMPARISON: 07/20/18. INDICATION: Altered mental status. FINDINGS: There is no evidence of acute intracranial hemorrhage, mass effect, or midline shift. Mild parenchyma l volume loss is present with compensatory dilatation of the ventricular system. Mild chronic ischemi c disease is present. The imaged paranasal sinuses reveal minimal mucosal thickening. IMPRESSION: No acute intracranial abnormalities. POS: [facility]
--- NOTE | 2018-09-12 15:16 | RAD ---
RIGHT KNEE 4 VIEWS: Date: 09/12/18 INDICATION: Injury with fall, pain. FINDINGS: There is mild osteoarthritis. No fracture, dislocation, or joint capsular distention. Vascular calcif ications are present. IMPRESSION: No acute osseous abnormality. POS: [facility]
== END 2018-09-12 15:17 | disposition short-term general hospital (02) ==
LOC: NAV ERS 11:58
DX: S79.911A Unspecified injury of right hip, initial encounter (principal); I10 Essential (primary) hypertension; F17.210 Nicotine dependence, cigarettes, uncomplicated; X58.XXXA Exposure to other specified factors, initial encounter
CPT/HCPCS: 70450; 72170; 80053; 82550; 84484; 85025; 93005; 96365; 96366; 96375; J1885; J2060; J2270; J3411; J7042

== ENCOUNTER 2018-11-01 07:53 | Emergency (ER) | payer MEDICARE ==
[2018-11-01] MEDS ORDERED: Lorazepam 2 MG/ML VIAL ONE (08:50)
[2018-11-01 08:58] LABS: #Basophils 0.1 thou/uL (0.0-0.2); #Lymphocytes 1.4 thou/uL (1.20-3.40); #Monocytes 0.9 thou/uL (0.11-0.59); #Neutrophils 11.5 thou/uL (1.40-6.50); %Basophils 0.4 % (0.0-1.0); %Eosinophils 0.2 % (0.0-10.0); %Lymphocytes 9.8 % (21.0-51.0); %Monocytes 6.6 % (0.0-10.0); Hemoglobin 11.2 g/dL (14.0-18.0); Mean Corpuscular HGB CONC 34.7 g/dL (32.0-36.0); Mean Corpuscular Hemoglobin 32.7 pg (27.0-31.0); Mean Platelet Volume 7.1 fL (7.4-10.4); Platelet Count 466 thou/uL (130-400); RBC Distribution Width 11.5 % (11.5-14.5); Red Blood Cell (RBC) Count 3.42 mill/uL (4.70-6.10); White Blood Cell (WBC) Count 13.8 thou/uL (4.8-10.8)
[2018-11-01] MEDS ORDERED: Morphine 4 MG/ML VIAL ONE (09:12)
[2018-11-01 09:26] LABS: ALT (SGPT) 17 U/L (8-55); AST (SGOT) 50 U/L (5-34); Albumin 4.4 g/dL (3.4-4.8); Alkaline Phosphatase 124 U/L (40-150); Anion Gap 20 mmol/L (10-20); BUN (Urea Nitrogen) 11 mg/dL (8.4-25.7); Bilirubin, Total 0.5 mg/dL (0.2-1.2); Calc. Creatinine Clearance 0 mL/min (70-130); Calcium 10.4 mg/dL (7.8-10.44); Carbon Dioxide 18 mmol/L (23-31); Chloride 90 mmol/L (98-107); Estimated GFR-MDRD Greater than 90; Globulin 3.4 g/dL (2.4-3.5); Glucose 108 mg/dL (80-115); Lipase 18 U/L (8-78); Potassium 4.3 mmol/L (3.5-5.1); Protein, Total 7.8 g/dL (5.8-8.1); Sodium 124 mmol/L (136-145)
[2018-11-01] MEDS ORDERED: cloNIDine 0.1 MG TAB ONE (10:09)
[2018-11-01 10:14] LABS: Bilirubin Negative (Negative); Blood, Urine Negative (Negative); Clarity Clear (Clear); Glucose, Urine (Dipstick) Negative (Negative); Leukocyte Negative (Negative); Nitrite Negative (Negative); Protein, Urine (Dipstick) Negative (Neg-Trace); Urobilinogen 0.2 mg/dL (0.2-1.0); pH, Urine 5.5 (5.0-9.0)
[2018-11-01 10:16] LABS: Base Excess-Venous -0.6 mmol/L (-2.0 to 3.0); Bicarbonate (HCO3v) 21.4 mmol/L (22.0-28.0); CO2 Tension (PvCO2) 26.7 mmHg (40.0-50.0); Chloride 91 mmol/L (98-107); Hemoglobin - Calc 11.5 g/dL (14.0-18.0); O2 Tension (PvO2) 35.2 mmHg (35.0-45.0); Potassium 3.2 mmol/L (3.5-5.1); Sodium 125 mmol/L (138-145); T. Carbon Dioxide 22.2 mmol/L (22.0-28.0); pH (Venous) 7.513 (7.320-7.430); vO2 Saturation-calc 75.4 % (60.0-85.0)
[2018-11-01] MEDS ORDERED: Ondansetron PF 4 MG/2 ML Vial ONE (10:16)
== END 2018-11-01 10:48 | disposition short-term general hospital (02) ==
LOC: NAV ERS 07:53
DX: E87.1 Hypo-osmolality and hyponatremia (principal); I10 Essential (primary) hypertension; F17.210 Nicotine dependence, cigarettes, uncomplicated; Z79.899 Other long term (current) drug therapy; Z79.82 Long term (current) use of aspirin
CPT/HCPCS: 51701; 81003; 82330; 82803; 83605; 83690; 85025; 96374; 96375; J2060; J2270; J2405